=== PATIENT | female | born 1985 | race Caucasian/White ===

== ENCOUNTER 2018-06-10 02:15 | Inpatient (IN) | payer OTHER ==
[2018-06-10] MEDS ORDERED: HYDROCODONE/APAP 5/325 TAB PO PRN (02:51)
[2018-06-10] MEDS ORDERED: HYDROCORTISONE 0.5% CREAM TP PRN (02:51)
[2018-06-10] MEDS ORDERED: SIMETHICONE 80 MG TAB CHEW PO PRN (02:51)
--- NOTE | 2018-06-10 02:54 | PDGENHP ---
History and Physical History and Physical: CARE: [facility] HPI: Patient is a 32 yo G 2 P 1 who presents to L&D with complaints of regular painful contractions since 1030 pm last night. She felt a gush of fluid in wheelchair on her way up to the unit, was when she arrived to labor and delivery - see delivery note. EDC: 06/09/18 which is based on LMP: 09/02/17 which is known and consistent with Ultrasound at 8 weeks. Her is complicated by: -Chron's disease -heterozygous Factor V Leiden -GBS positive Review of Systems: Constitutional: Denies any fever, chills, or fatigue HEENT: denies any visual changes, difficulty swallowing, hearing loss Cardiovascular: Denies any chest pain, palpitations, leg swelling Respiratory: denies any cough, wheezing, or shortness of breathe GI: Denies any nausea, vomiting, diarrhea, constipation : denies any dysuria, urgency, frequency, vaginal bleeding Musculoskeletal: denies any muscle or bone pain Skin: denies any rashes Neuro: denies any headache, seizures, lightheadedness, dizziness, or loss of consciousness Psychiatric: denies any depression, anxiety, or SI/HI thoughts HISTORY: Previous OB history: 2016 Past medical history: Chron's disease, heterozygous Factor V Leiden Past surgical history: Estelle -21 y/o Medications: PNV, baby ASA Allergies (list reaction): NKDA LABS: Rh: A pos ABS: Neg Rubella: Immune HbsAg: NR HIV: NR VDRL: NR 1hr: 105 GC: Neg Chlamydia: Neg Pap: Normal GBS: pos PHYSICAL EXAM: Constitutional: WN, A&Ox3 Skin: pink, warm, dry HEENT: normocephalic atraumatic, supple Heart: RRR, no murmur Chest: CTA-B Abdomen: Soft, nontender, gravid SVE: head on admission Extremities: tr edema, negative eleanor's sign Neuro: grossly normal Psych: normal affect assessment: no assessment was done due to imminent delivery Assessment: 1) 32 yo G 2 P 1 with IUP@ 40.1 weeks ega 2) Imminent delivery 3) GBS pos Plan: 1) - see delivery note 2) Unable to give antibiotics for GBS prophylaxis due to precipitous delivery 3) Routine pp care
--- NOTE | 2018-06-10 02:58 | OBDEL ---
Info Type: Vaginal Presentation at Delivery: Vertex L&D Analgesia/Anesthesia Type: Local GBS+: Yes Indications for Delivery: Spontaneous Labor Vaginal Delivery - Delivery Provider Delivery Physician/CNM: Mya Lynn - Labor and Delivery Onset of Contractions Date: 06/09/18 Onset of Contractions Time: 22:30 Onset of Contractions Type: Spontaneous Rupture of Membranes Date: 06/10/18 Rupture of Membranes Time: 02:15 Rupture of Membranes Type: Spontaneous Amniotic Fluid Color: Clear Dilation Complete Date: 06/10/18 Dilation Complete Time: 02:15 Placenta Delivery Date: 06/10/18 Placenta Delivery Time: 02:24 Total Hours of Labor: 3 Laceration: 2nd Degree Repair: 3-0, Vicryl Vaginal Sponge Count Correct: Yes Vaginal Needle Count Correct: Yes Vaginal Sweep Performed: No EBL: 100 Delivery Events: Nuchal Cord Delivery Comment: precipitous uncomplicated delivery, Data MARTY: 06/09/18 Gestational Age: 40 week(s) and 1 day(s) Lawson Delivery Date: 06/10/18 Delivery Time: 02:19 Sex of Infant: Male Score (1 Min): 8 Score (5 Min): 9 ICD10 Worksheet Patient Problems: Problems Problem Status Onset SROM (spontaneous rupture of membranes) Acute GBS (group B Streptococcus carrier), +RV culture, currently Acute Vaginal delivery Acute - ICD10 Problem Qualifiers (1) Vaginal delivery
[2018-06-10] MEDS ORDERED: IBUPROFEN 600 MG TAB PO ONE (03:11)
[2018-06-10] MEDS: IBUPROFEN 600 MG TAB PO SCH ×4 (03:12→21:01)
[2018-06-10] MEDS: ACETAMINOPHEN 325 MG TAB PO SCH ×4 (04:23→22:45)
[2018-06-10] MEDS: DOCUSATE SODIUM 100 MG CAP PO PRN (21:01)
[2018-06-11] MEDS: IBUPROFEN 600 MG TAB PO SCH ×4 (02:53→23:31)
[2018-06-11] MEDS: ACETAMINOPHEN 325 MG TAB PO SCH ×4 (04:50→23:32)
--- NOTE | 2018-06-11 10:24 | OBPP ---
Progress Note Assessment/Plan: Assessment: [id number] s/p PPD#1 GBS untreated Plan: routine PP care support PRN cont ibuprofen and ambulation anticipate d/c home tomorrow Subjective/ Course: 06/11/18 19:08 Pt doing well, she denies any pain. Reports some cramping- worse with nursing, but overall feeling good. She denies any heavy bleeding. She is without difficulty. Objective: Temp Pulse Resp BP Pulse Ox 36.3 C 81 18 122/83 H 96 06/10/18 20:00 06/10/18 20:00 06/10/18 20:00 06/10/18 20:00 06/10/18 20:00 Uterine Position/Fundal Height: Umbilicus -2, Midline Uterine Tone: Firm Physical Exam - Physical Exam General Appearance: WD/WN, alert, no apparent distress Neck: supple Abdomen: non-tender, soft Skin: normal color, warm/dry Neuro/Psych: alert, normal mood/affect, oriented x 3
[2018-06-11] MEDS: DOCUSATE SODIUM 100 MG CAP PO PRN (17:02)
[2018-06-12] MEDS: IBUPROFEN 600 MG TAB PO SCH (05:03)
[2018-06-12] MEDS: ACETAMINOPHEN 325 MG TAB PO SCH ×2 (05:04→11:35)
[2018-06-12 10:56] VITALS: BP 105/67
--- NOTE | 2018-06-12 11:01 | OBGCSDC ---
General Delivery Information - General Info : 2 Para: 2 Abortions: 0 Type: Vaginal L&D Analgesia/Anesthesia Type: Local Admission Date: 06/10/18 - Hospital Course : 06/11/18 19:08 Pt doing well, she denies any pain. Reports some cramping- worse with nursing, but overall feeling good. She denies any heavy bleeding. She is without difficulty. 06/12/18 10:59 S) Pt doing well, reports min pain and bleeding. she is ambulating and voiding without difficulty. She is . She desires discharge home today. O) VSS, afebrile constitutional: WNWF, A&Ox3 HEENT: normocephalic, atraumatic, supple Heart: RRR, No murmur Chest: CTA-B Abdomen: Soft, nontender Uterus: Firm at U-2 Lochia: Minimal rubra Perineum: Intact, healing well Extremities: Trace edema, and negative Shanon's sign Neuro: Grossly normal A) 32 year-old S/P PPD#2 P) Discharge home today Continue Pelvic rest x6wks Discussed danger signs (infection, preeclampsia, depression, heavy bleeding, etc) RTO in 2/4/6 weeks Vaginal - Delivery Provider Delivery Physician/CNM: Mya Lynn - Diagnosis Labor: Spontaneous Rupture of Membranes Type: Spontaneous Amniotic Fluid Color: Clear Laceration: 2nd Degree Repair: 3-0, Vicryl Delivery Events: Nuchal Cord - Delivery EBL: 100 [place] Data MARTY: 06/09/18 Gestational Age: 40 week(s) and 3 day(s) Lawson Delivery Date: 06/10/18 Delivery Time: 02:19 Sex of Infant: Male [place] Weight (gm): 2876 g Score (1 Min): 8 Score (5 Min): 9 Discharge Information - Discharge Information Condition: Good
== END 2018-06-12 14:30 | disposition home or self-care (01) | DRG 807 ==
LOC: FLD 02:15 → FOB 05:20
PROVIDERS: ADMIT Advanced Practice Midwife; ATTEND Advanced Practice Midwife
DX: O99.824 Streptococcus B carrier state complicating childbirth (principal); Z37.0 Single live birth; Z3A.40 40 weeks gestation of pregnancy; O70.1 Second degree perineal laceration during delivery

== ENCOUNTER 2018-09-26 13:59 | Emergency (ER) | payer OTHER ==
--- NOTE | 2018-09-26 14:08 | EDPHY ---
H & P Stated Complaint: son with flu/cough/fever had course of tamiflu/not better cp with breathing Time Seen by Provider: 09/26/18 14:07 - Personal History LMP (Females 10-55): Over 28 Days Ago Current Tetanus Diphtheria and Acellular Pertussis (TDAP): Yes Tetanus Vaccine Date: two years ago - Medical/Surgical History Hx Asthma: No Hx Chronic Respiratory Disease: No Hx Diabetes: No Hx Cardiac Disease: No Hx Renal Disease: No Hx Cirrhosis: No Hx Alcoholism: No Hx HIV/AIDS: No Hx Splenectomy or Spleen Trauma: No Other PMH: Crohns. Estelle - Social History Smoking Status: Never smoked Constitutional: Initial Vital Signs Temperature (C) 37.5 C 09/26/18 14:03 Heart Rate 126 H 09/26/18 14:03 Respiratory Rate 18 09/26/18 14:03 Blood Pressure 130/93 H 09/26/18 14:03 O2 Sat (%) 96 09/26/18 14:03 O2 Delivery Mode Room Air Allergies/Adverse Reactions: azathioprine [From Imuran] Allergy (Verified 09/26/18 14:03) crohns med Allergy (Uncoded 08/14/14 18:11) Home Medications: Medication Instructions Recorded Azithromycin [Zithromax] 250 mg PO DAILY #6 tab 09/26/18 Medical Decision Making - Diagnostics Imaging Results: Imaging Impressions Chest X-Ray 09/26/18 14:14 Impression: Query mild airways disease with no superimposed pneumonia identified. Imaging: I viewed and interpreted images myself ED Course/Re-evaluation: CHIEF COMPLAINT: Fever, cough, chest pain HISTORY OF PRESENT ILLNESS: The patient is a 32 y/o female with a history of Crohn's disease in remission and not on immunosuppressant medication who arrives complaining of fever, cough, nasal congestion with green mucus, and bilateral ear pain for the last few days. Her child was diagnosed with Flu A 2.5 weeks ago and both the child and the patient were placed on Tamiflu. The patient felt slightly poor prior to starting the Tamiflu and just completed that prescription yesterday. Last night she lied down and noticed achy chest and back pain and her friend encouraged her to come into the ED. She has been treating her ear pain with garlic oil and took some ibuprofen with mild relief. She did not get a flu vaccination this season. REVIEW OF SYSTEMS: A comprehensive 10 system review of systems is otherwise negative aside from elements mentioned in the history of present illness and medical decision making. PHYSICAL EXAM: HR, BP, O2 Sat, RR. Temp noted General Appearance: Alert, well hydrated, appropriate, and non-toxic appearing. Head: Atraumatic without scalp tenderness or obvious injury Eyes: Pupils equal, round, reactive to light and accommodation, EOMI, no trauma , no injection. Ears: Erythematous TMs bilaterally, left worse than right, no perforation, normal landmarks Nose: Atraumatic, no rhinorrhea, clear. Throat: There is no erythema or exudates, no lesions, normal tonsils, mucus membranes moist. Neck: Supple, nontender, no lymphadenopathy. Respiratory: No retractions, no distress, no wheezes, and no accessory muscle use. Lungs are clear to auscultation bilaterally. Cardiovascular: Regular rate and rhythm, no murmurs, rubs, or gallops. Good capillary refill all extremities. Gastrointestinal: Abdomen is soft, nontender, non-distended, no masses, no rebound, no guarding, no peritoneal signs. Musculoskeletal: Normal active ROM of all extremities, atraumatic. Neurological: Alert, appropriate, and interactive. The patient has and non- focal cranial nerves, motor, sensory, and cerebellar exam. Skin: No rashes, good turgor, no nodules on palpation. Past medical history: Crohn's disease - in remission, not on immunosuppressive medications currently Past surgical history: Cholecystectomy Family history: Noncontributory Social history: Has 2.5yr and 3mos children at home. Currently . Lives in [place]. DIAGNOSTICS/PROCEDURES/CRITICAL CARE TIME: Chest x-ray: negative DIFFERENTIAL DIAGNOSIS: The differential diagnosis for the patient's fever included but was not limited to pneumonia, urinary tract infection, viral syndrome, meningitis, and sepsis. MEDICAL DECISION MAKING: This is a 32 y/o female with a history of Crohn's disease in remission who presents with a few-day history of fever, cough, nasal congestion, and bilateral ear pain. Her child was recently diagnosed with influenza and both the child and the patient were treated with Tamiflu. The patient is generally well-appearing on exam, but is tachycardic and has bilateral otitis media, left worse than right. Lungs are clear to auscultation. Plan for chest x-ray to rule out pneumonia. Duo neb and 500mg PO azithromycin ordered. Chest x-ray is negative. Reassessed patient and discussed findings. She will be discharged home with standard otitis media care and follow up instructions and script for azithromycin. Return precautions discussed. She is comfortable with plan for discharge. - Data Points Medications Given: Discontinued Medications Albuterol/Ipratropium (Duoneb) 3 ml IH EDNOW ONE Stop: 09/26/18 14:14 Last Admin: 09/26/18 14:21 Dose: 3 ml Azithromycin (Zithromax) 500 mg PO EDNOW ONE PRN Reason: Protocol Stop: 09/26/18 14:15 Last Admin: 09/26/18 14:20 Dose: 500 mg Point of Care Test Results: Urine Collection Date 09/26/18 Collection Time 14:55 HCG Results Negative Departure - Departure Disposition: Home, Routine, Self-Care Clinical Impression: Otitis media Qualifiers: Otitis media type: unspecified Chronicity: acute Qualified Code(s): H66.90 - Otitis media, unspecified, unspecified ear Condition: Good Instructions: Azithromycin (By mouth), Ear Infection (ED) Additional Instructions: 1. Take azithromycin as prescribed. Be sure to complete the entire prescription even if symptoms have resolved. 2. Use ibuprofen and Tylenol as directed on the packaging for fever and body aches over the next few days. 3. Cover your cough and wash your hands frequently to prevent spread of illness to others. 4. Follow up with your primary care provider as needed for unimproved symptoms. 5. Return to the ED for worsening of condition. Referrals: Breezy Holden MD [Primary Care Provider] - As per Instructions Prescriptions: Azithromycin [Zithromax] 250 mg PO DAILY #6 tab Report Scribed for: Nii Huang Report Scribed by: Nicole Ames Date of Report: 09/26/18 Time of Report: 14:14
[2018-09-26] MEDS ORDERED: IPRATROPIUM/ALBUTEROL 3 ML DEYVIAL IH ONE (14:13)
[2018-09-26] MEDS ORDERED: AZITHROMYCIN 250 MG TAB PO ONE (14:14)
[2018-09-26 15:15] VITALS: BP 118/68
== END 2018-09-26 15:17 | disposition home or self-care (01) ==
DX: H66.90 Otitis media, unspecified, unspecified ear (principal); K50.90 Crohn's disease, unspecified, without complications; R07.9 Chest pain, unspecified; R05 Cough; R09.81 Nasal congestion